=== PATIENT | male | born 1950 | race Caucasian/White ===

== ENCOUNTER 2019-11-02 07:53 | Inpatient (IN) | payer MEDICARE, OTHER ==
[2019-10-25 16:44] LABS: BASOPHILS # (AUTO) 0.1 X10'3 (0-0.2); BASOPHILS % (AUTO) 0.9 % (0-1); EOSINOPHILS # (AUTO) 0.2 X10'3 (0-0.9); EOSINOPHILS % (AUTO) 2.3 % (0-6); LYMPHOCYTES # (AUTO) 2.1 X10'3 (1.1-4.8); LYMPHOCYTES % (AUTO) 28.1 % (21-51); MEAN CORPUSCULAR HEMOGLOBIN 31.3 PG (27.0-31.0); MEAN CORPUSCULAR HGB CONC 33.7 g/dL (33.0-36.5); MEAN CORPUSCULAR VOLUME 92.7 FL (78-98); MEAN PLATELET VOLUME 8.9 FL (7.4-10.4); MONOCYTES # (AUTO) 0.7 X10'3 (0-0.9); MONOCYTES % (AUTO) 9.6 % (2-12); NEUTROPHILS # (AUTO) 4.5 X10'3 (1.8-7.7); NEUTROPHILS % (AUTO) 59.1 % (42-75); PRE OP HEMOGLOBIN 15.2 g/dL (14.0-17.9); PRE OP PLATELET COUNT 221 X10'3 (140-440); RED BLOOD COUNT 4.85 X10'6 (4.70-6.10); RED CELL DISTRIBUTION WIDTH 14.3 % (11.5-14.5)
[2019-10-25 17:03] LABS: ALBUMIN 3.9 G/DL (3.4-5.0); ALBUMIN/GLOBULIN RATIO 1.3 (1.1-1.5); ALKALINE PHOSPHATASE 89 IU/L (46-116); BLOOD UREA NITROGEN 28 MG/DL (7-18); BUN/CREATININE RATIO 23.9 (5.4-32.0); CALCIUM 9.3 MG/DL (8.5-10.1); CHLORIDE 108 MMOL/L (99-107); CREATININE 1.17 MG/DL (0.60-1.10); PRE OP ALT 31 U/L (30-65); PRE OP ANION GAP 10 (8-16); PRE OP AST 20 U/L (10-37); PRE OP BILIRUB, TOTAL 0.3 MG/DL (0.0-1.0); PRE OP GLUCOSE 103 MG/DL (70-104); PRE OP POTASSIUM 4.2 MMOL/L (3.4-5.1); PRE OP SODIUM 144 MMOL/L (135-145); TOTAL CARBON DIOXIDE 26.5 MMOL/L (24-32); TOTAL PROTEIN 6.8 G/DL (6.4-8.2); eGFR 62 ML/MIN
[2019-11-02] VITALS (17 sets, daily range): BP systolic 90–183; BP diastolic 48–92
[~2019-11-02] VITALS: Ht 170.2 cm; Wt 102.4 kg
[~2019-11-02 07:53] MED LIST: ACET-812 PO; ASPI-1265 PO; ATOR10TA70 PO; LEVO50TA8 PO; LISI10TA4 PO; MULT-933 PO; NAPR220C15 PO; NORMAL SALINE IV ONE; TRANEXAMIC ACID IV ONE; cefazolin/dext.iso 2gm/100ml 100 ML IV ONE; famotidine 20mg tablet PO ONE; ringers solution, lacted 1,000 ML IV SCH; vancomycin inj 1,500 MG in normal saline 300ml IV soln IV ONE
[2019-11-02] MEDS ORDERED: TRANEXAMIC ACID IV ONE (12:00)
[2019-11-02] MEDS ORDERED: NORMAL SALINE IV ONE (12:00)
[2019-11-02] MEDS ORDERED: tranexamic acid 1gm/0.7% sal. 100 ML IV ONE ×2 (12:10→18:45)
[2019-11-02] MEDS ORDERED: sevoflurane 250ml liquid IH ONE (12:23)
[2019-11-02] MEDS ORDERED: dexamethasone sod phosphate 10mg/ml inj ONE (12:23)
[2019-11-02] MEDS ORDERED: fentaNYL/PF 50MCG/1 ML 2ML syringe ONE (12:29)
[2019-11-02] MEDS ORDERED: midazolam 2 mg/2 ml injection ONE (12:30)
[2019-11-02] MEDS ORDERED: ROPIVAcaine 0.5% (5mg/ml) 30ml vial ONE ×2 (12:39→15:37)
[2019-11-02] MEDS ORDERED: ketorolac trometh. 30mg/ml inj. ONE (12:39)
[2019-11-02] MEDS ORDERED: magnesium hydroxide 30ml (MOM) UD suspension PO PRN (13:00)
[2019-11-02] MEDS ORDERED: oxyCODONE IR 5mg (immed. release) tablet PO PRN (13:00)
[2019-11-02] MEDS ORDERED: ondansetron/PF 4mg/2ml inj IV PRN ×2 (13:00→13:25)
[2019-11-02] MEDS ORDERED: bisacodyl 10mg suppository rectal RC PRN (13:00)
[2019-11-02] MEDS ORDERED: HYDROmorphone 1 mg/ml syringe IV PRN (13:00)
[2019-11-02] MEDS ORDERED: HYDROmorphone inj. 0.5 MG/0.5 ML DISP.SYRIN IV PRN (13:00)
[2019-11-02] MEDS ORDERED: diphenhydrAMINE 25mg capsule PO PRN ×2 (13:00)
[2019-11-02] MEDS ORDERED: ringers solution, lacted 1,000 ML IV SCH (13:24)
[2019-11-02] MEDS ORDERED: morphine 4 MG/ML inj SYRINge IV PRN ×2 (13:25)
[2019-11-02] MEDS ORDERED: ROPIVAcaine 0.2% (10 MG/5 ML) BOLUS INJECTION INTERSCALE PRN (13:25)
[2019-11-02] MEDS ORDERED: labetalol 20mg/4ml (5mg/ml) syringe IV PRN (13:25)
[2019-11-02] MEDS ORDERED: hydrALAZINE 20mg/ml inj. IV PRN (13:25)
[2019-11-02] MEDS ORDERED: fentaNYL/PF 50MCG/1 ML 2ML syringe IV PRN ×2 (13:25)
[2019-11-02] MEDS ORDERED: ROPIVAcaine 0.5% (5mg/ml) 30ml vial IJ ONE (14:00)
[2019-11-02 15:02] LABS: APPEARANCE,SYNOVIAL FLUID BLOODY; COLOR,SYNOVIAL FLUID RED; SYN RBC 42000 /CU MM (0); SYN WBC 17 /CU MM (0-200)
[2019-11-02] MEDS ORDERED: LIDOcaine 2% (20mg/ml) 5ml vial ONE (15:37)
[2019-11-02] MEDS ORDERED: ondansetron/PF 4mg/2ml inj ONE (15:37)
[2019-11-02] MEDS ORDERED: propofol inj 20 ML IV ONE (15:37)
--- NOTE | 2019-11-02 15:55 | NUR ---
Received from OR via BED , accompanied by Anesthesiologist DR STOLL and report given by Anesthesiolgist. PATIENT A&OX4, DENIES PAIN, V/S WNL, NEUROVASCULAR CHECKS INTACT, 20G PIV LUE , RIGHT SHOULDER DRESSING WRAP CDI WITH COLD POWDER PACK AND SLING, SCD ON. ON-Q TO BE STARTED WHEN IT IS DELIVERED
[2019-11-02] MEDS ORDERED: tranexamic acid inj. 1,000 MG in normal saline 100ml IV soln 100 ML IV ONE (16:00)
[2019-11-02] MEDS: ROPIVAcaine 0.2%/PF PUMP/bolus 550 ML INTERSCALE SCH ×2 (16:10→22:10)
--- NOTE | 2019-11-02 16:15 | NUR ---
Patient in room . I have received report from Hector in recovery and had the opportunity to ask questions and assume patient care.
--- NOTE | 2019-11-02 16:55 | NUR ---
PATIENT A&OX4, DENIES PAIN, V/S WNL, NEUROVASCULAR CHECKS INTACT, 20G PIV LUE , RIGHT SHOULDER DRESSING WRAP CDI WITH COLD POWDER PACK AND SLING, SCD ON. ON-Q STARTED AT 4ML/HR. PATIENT TAKEN TO 4006 WITH ALL BELONGINGS AND HOOKED UP TO MONITORS IN ROOM AND REPORT GIVEN TO RAW MILL OPERATOR WHO HAS TAKEN OVER PATIENT CARE.
--- NOTE | 2019-11-02 17:10 | NUR ---
Pt arrived on floor, tucked in, provided comfort measures, snacks
[2019-11-02] MEDS: ceFAZolin 1GM/D5W- ADD-VANTAGE 50 ML IV SCH (17:48)
--- NOTE | 2019-11-02 18:17 | NUR ---
Problems reprioritized. Patient report given, questions answered & plan of care reviewed with Miriam.
--- NOTE | 2019-11-02 18:30 | NUR ---
Patient in room [facility] 4006. I have received report from Iliana GARCÍA and had the opportunity to ask questions and assume patient care.
[2019-11-02] MEDS: potassium cl 20mEq in 1/2 NS 1,000 ML IV SCH ×2 (19:16→20:58)
[2019-11-02] MEDS ORDERED: vancomycin/NS 1 GM ADD-VANTAGE 250 ML IV SCH (20:00)
[2019-11-02] MEDS: naproxen sodium 220mg tablet PO SCH (20:00)
[2019-11-02] MEDS ORDERED: sennosides 8.6mg tablet PO SCH (21:00)
[2019-11-02] MEDS ORDERED: acetaminophen 325mg tablet PO SCH (21:00)
--- NOTE | 2019-11-02 22:11 | NUR ---
Pain of 7/10. Increased ON-Q pump to 6/hr
[2019-11-03] MEDS: ceFAZolin 1GM/D5W- ADD-VANTAGE 50 ML IV SCH (00:17)
[2019-11-03 02:00] VITALS: BP 94/53
[2019-11-03] MEDS: oxyCODONE IR 5mg (immed. release) tablet PO PRN ×2 (03:09→08:44)
[2019-11-03] MEDS: potassium cl 20mEq in 1/2 NS 1,000 ML IV SCH ×2 (04:58→12:58)
[2019-11-03 06:00] VITALS: BP 126/70
[2019-11-03 06:27] LABS: ANION GAP 10 (8-16); CHLORIDE 108 MMOL/L (99-107); POTASSIUM 4.2 MMOL/L (3.5-5.1); SODIUM 140 MMOL/L (135-145)
--- NOTE | 2019-11-03 06:41 | NUR ---
Problems reprioritized. Patient report given, questions answered & plan of care reviewed with Siri RN.
[2019-11-03 06:42] LABS: BASOPHILS # (AUTO) 0.1 X10'3 (0-0.2); BASOPHILS % (AUTO) 0.6 % (0-1); EOSINOPHILS # (AUTO) 0.1 X10'3 (0-0.9); EOSINOPHILS % (AUTO) 0.6 % (0-6); HEMATOCRIT 37.7 % (42.0-52.0); HEMOGLOBIN 12.7 g/dl (14.0-17.9); LYMPHOCYTES # (AUTO) 1.3 X10'3 (1.1-4.8); LYMPHOCYTES % (AUTO) 14.4 % (21-51); MEAN CORPUSCULAR HEMOGLOBIN 31.5 PG (27.0-31.0); MEAN CORPUSCULAR HGB CONC 33.8 g/dL (33.0-36.5); MEAN CORPUSCULAR VOLUME 93.2 FL (78-98); MEAN PLATELET VOLUME 9.4 FL (7.4-10.4); MONOCYTES # (AUTO) 1.2 X10'3 (0-0.9); MONOCYTES % (AUTO) 13.5 % (2-12); NEUTROPHILS # (AUTO) 6.2 X10'3 (1.8-7.7); NEUTROPHILS % (AUTO) 70.9 % (42-75); PLATELET COUNT 187 X10'3 (140-440); RED BLOOD COUNT 4.05 X10'6 (4.70-6.10); RED CELL DISTRIBUTION WIDTH 14.1 % (11.5-14.5); WHITE BLOOD COUNT 8.7 X10'3 (4.5-11.0)
--- NOTE | 2019-11-03 06:50 | NUR ---
Patient in room [facility]TH[facility] 4006. I have received report from RAQUEL Pineda and had the opportunity to ask questions and assume patient care.
[2019-11-03] MEDS ORDERED: levoTHYROXINE 25mcg tablet PO SCH (07:00)
[2019-11-03] MEDS: naproxen sodium 220mg tablet PO SCH (08:00)
[2019-11-03] MEDS ORDERED: lisinopril 10 MG tablet PO SCH (08:00)
[2019-11-03] MEDS ORDERED: multivitamins, therapeutics tablet PO SCH (08:00)
[2019-11-03] MEDS ORDERED: atorvastatin 10mg tablet PO SCH (08:00)
[2019-11-03] MEDS ORDERED: aspirin 81mg tab.chew PO SCH (08:00)
[2019-11-03] MEDS ORDERED: aspirin 325mg tablet PO SCH (08:30)
[2019-11-03 10:00] VITALS: BP 93/70
--- NOTE | 2019-11-03 13:35 | NUR ---
DC inst provided to pt. IV DC'd, tip intact. All belongings sent w/pt. Pt ambulated to front lobby.
== END 2019-11-03 13:35 | disposition home or self-care (01) | DRG 496 ==
LOC: PAS 07:53 → EDSTATUS 12:45 → ORTHO 4S 12:58 → PAS 17:10 → ORTHO 4S 17:10 → PAS 11-03 13:35 → ORTHO 4S 11-03 13:35
PROVIDERS: ADMIT Orthopaedic Surgery; ATTEND Orthopaedic Surgery
PROC: 0RHJ08Z Insertion of Spacer into Right Shoulder Joint, Open Approach (ICD-10-PCS; 2019-11-02)
PROC: 3E0T3BZ Introduction of Anesthetic Agent into Peripheral Nerves and Plexi, Percutaneous Approach (ICD-10-PCS; 2019-11-02)
PROC: 0RPJ0JZ Removal of Synthetic Substitute from Right Shoulder Joint, Open Approach (ICD-10-PCS; principal; 2019-11-02 12:23)
DX: T84.498A Other mechanical complication of other internal orthopedic devices, implants and grafts, initial encounter (principal); D62 Acute posthemorrhagic anemia; Z96.611 Presence of right artificial shoulder joint; M25.511 Pain in right shoulder; E03.9 Hypothyroidism, unspecified; E78.5 Hyperlipidemia, unspecified; E66.9 Obesity, unspecified; G89.29 Other chronic pain; I10 Essential (primary) hypertension; M65.811 Other synovitis and tenosynovitis, right shoulder; Y79.2 Prosthetic and other implants, materials and accessory orthopedic devices associated with adverse incidents; Y92.89 Other specified places as the place of occurrence of the external cause; Z88.5 Allergy status to narcotic agent; Z87.891 Personal history of nicotine dependence; Z68.35 Body mass index [BMI] 35.0-35.9, adult; Z79.899 Other long term (current) drug therapy; Z79.82 Long term (current) use of aspirin
CPT/HCPCS: 36415; 73020; 76000; 80051; 80053; 82948; 84443; 85025; 87070; 87075; 87081; 87176; 89051; A4565; A4618; A6455; A7000; C1713; C1776; G0378; J0690; J1100; J1170; J1885; J2001; J2250; J2405; J2704; J2795; J3010; J3370; J3480; J7120

== ENCOUNTER 2024-07-30 07:42 | Inpatient (IN) | payer MEDICARE, OTHER ==
[2024-07-24 10:04] LABS: BASOPHILS % (AUTO) 0.7 % (0-1); EOSINOPHILS # (AUTO) 0.1 X10'3 (0-0.9); EOSINOPHILS % (AUTO) 1.8 % (0-6); LYMPHOCYTES # (AUTO) 1.7 X10'3 (1.1-4.8); MEAN CORPUSCULAR HEMOGLOBIN 31.1 PG (27.0-31.0); MEAN CORPUSCULAR HGB CONC 32.4 g/dL (33.0-36.5); MEAN PLATELET VOLUME 8.8 FL (7.4-10.4); MONOCYTES # (AUTO) 0.6 X10'3 (0-0.9); MONOCYTES % (AUTO) 9.7 % (2-12); NEUTROPHILS % (AUTO) 61.8 % (42-75); PRE OP HEMOGLOBIN 14.6 g/dL (14.0-17.9); PRE OP PLATELET COUNT 212 X10'3 (140-440); PRE OP WHITE BLOOD COUNT 6.5 10'3 (4.8-10.8); RED BLOOD COUNT 4.69 X10'6 (4.70-6.10); RED CELL DISTRIBUTION WIDTH 14.7 % (11.5-14.5)
[2024-07-24 10:29] LABS: ALBUMIN 3.5 G/DL (3.4-5.0); ALBUMIN/GLOBULIN RATIO 1.1 (1.1-1.5); ALKALINE PHOSPHATASE 75 IU/L (46-116); BLOOD UREA NITROGEN 25 MG/DL (7-18); CALCIUM 9.4 MG/DL (8.5-10.1); CHLORIDE 105 MMOL/L (99-107); CREATININE 1.04 MG/DL (0.60-1.10); PRE OP ALT 30 U/L (30-65); PRE OP ANION GAP 7 (8-16); PRE OP AST 25 U/L (10-37); PRE OP BILIRUB, TOTAL 0.3 MG/DL (0.0-1.0); PRE OP GLUCOSE 93 MG/DL (70-104); PRE OP SODIUM 140 MMOL/L (135-145); THYROID STIMULATING HORMONE 1.88 ulU/ml (0.34-4.50); TOTAL CARBON DIOXIDE 28.5 MMOL/L (24-32); TOTAL PROTEIN 6.8 G/DL (6.4-8.2); eGFR 70 ML/MIN
[2024-07-24 10:35] LABS: PRE OP POTASSIUM 4.4 MMOL/L (3.4-5.1)
[~2024-07-30] VITALS: Ht 175.3 cm; Wt 96.9 kg
[2024-07-30] VITALS (23 sets, daily range): BP systolic 102–185; BP diastolic 62–100; PULSE 62–96; RESP 12–18; TEMP 97–97.6; O2SAT 92–99
[2024-07-30] MEDS: ceFAZolin 2gm in dextrose, iso 50 ML IV ONE (05:30)
[~2024-07-30 07:42] MED LIST changes: -ASPI-1265 PO; +IBUP-1985 PO; +LISI10TA27 PO; -LISI10TA4 PO; -NAPR220C15 PO; -NORMAL SALINE IV ONE; +OMEG-166 PO; -TRANEXAMIC ACID IV ONE; -cefazolin/dext.iso 2gm/100ml 100 ML IV ONE; -famotidine 20mg tablet PO ONE; -ringers solution, lacted 1,000 ML IV SCH; -vancomycin inj 1,500 MG in normal saline 300ml IV soln IV ONE
[2024-07-30] MEDS: famotidine 20mg tablet PO ONE (08:54)
[2024-07-30] MEDS: vancomycin 1,500 MG in NS 300ml IV soln IV ONE (08:55)
[2024-07-30] MEDS: ringers solution, lacted 1,000 ML IV SCH (08:55)
[2024-07-30] MEDS: tranexamic acid 650mg tablet PO ONE (08:55)
[2024-07-30] MEDS ORDERED: ROPIVAcaine 0.5% (5mg/ml) 30ml vial ONE ×2 (10:26→10:41)
[2024-07-30] MEDS ORDERED: dexamethasone sod phosphate 4mg/ml inj. ONE (10:41)
[2024-07-30] MEDS ORDERED: propofol inj 20 ML IV ONE (10:42)
[2024-07-30] MEDS ORDERED: LIDOcaine 2% (20mg/ml) 5ml vial ONE (10:42)
[2024-07-30] MEDS ORDERED: sevoflurane 250ml liquid IH ONE (11:32)
[2024-07-30] MEDS ORDERED: acetaminophen 1,000mg/100ml IV 100 ML IV ONE (12:14)
[2024-07-30] MEDS ORDERED: ePHEDrine 50MG/ML INJ. ONE (12:37)
[2024-07-30] MEDS ORDERED: morphine 2 MG/ML inj. syringe IV PRN (12:45)
[2024-07-30] MEDS ORDERED: hydrALAZINE 20mg/ml inj. IV PRN (12:45)
[2024-07-30] MEDS ORDERED: ringers solution, lacted 1,000 ML IV SCH (12:45)
[2024-07-30] MEDS ORDERED: ondansetron/PF 4mg/2ml inj IV PRN ×2 (12:45→14:50)
[2024-07-30] MEDS ORDERED: fentaNYL/PF 50MCG/1 ML 2ML syringe IV PRN ×2 (12:45)
[2024-07-30] MEDS ORDERED: morphine 4 MG/ML inj SYRINge IV PRN (12:45)
[2024-07-30] MEDS ORDERED: labetalol 20mg/4ml (5mg/ml) syringe IV PRN (12:45)
[2024-07-30] MEDS: ROPIVAcaine 0.5% (5mg/ml) 30ml vial IJ ONE (12:59)
[2024-07-30] MEDS ORDERED: ROPIVAcaine 0.2% (10 MG/5 ML) BOLUS INJECTION INTERSCALE PRN (13:00)
[2024-07-30] MEDS ORDERED: ondansetron/PF 4mg/2ml inj ONE (13:01)
[2024-07-30] MEDS ORDERED: meperidine/PF 50mg/ml syringe ONE ×2 (13:01→13:47)
[2024-07-30] MEDS ORDERED: ketorolac trometh 30MG/ML vial 30 MG/ML VIAL ONE (13:15)
[2024-07-30] MEDS ORDERED: diphenhydrAMINE 25mg capsule PO PRN ×2 (14:50)
[2024-07-30] MEDS ORDERED: oxyCODONE IR 5mg (immed. release) tablet PO PRN (14:50)
[2024-07-30] MEDS ORDERED: acetaminophen 325mg tablet PO PRN (14:50)
[2024-07-30] MEDS ORDERED: magnesium hydroxide 30ml (MOM) UD suspension PO PRN (14:50)
[2024-07-30] MEDS ORDERED: HYDROmorphone inj. 0.5 MG/0.5 ML DISP.SYRIN IV PRN (14:50)
[2024-07-30] MEDS ORDERED: ACETAMINOPHEN 500 MG PO PRN (14:50)
[2024-07-30] MEDS ORDERED: bisacodyl 10mg suppository rectal RC PRN (14:50)
[2024-07-30] MEDS: ROPIVAcaine 0.2%/PF PUMP/bolus 545 ML INTERSCALE SCH (14:57)
[2024-07-30] MEDS ORDERED: IBUPROFEN 600 MG PO SCH (16:00)
[2024-07-30] MEDS ORDERED: ceFAZolin/D5W- 1GM premix 50 ML IV SCH (16:00)
[2024-07-30] MEDS: HYDROmorphone 1 mg/ml syringe IV PRN (17:11)
[2024-07-30] MEDS: oxyCODONE IR 5mg (immed. release) tablet PO PRN (19:18)
[2024-07-30] MEDS: ceFAZolin/D5W- 1GM premix 50 ML IV SCH (19:18)
[2024-07-30] MEDS: sennosides 8.6mg tablet PO SCH (22:41)
[2024-07-30] MEDS: acetaminophen 325mg tablet PO SCH (22:41)
[2024-07-30] MEDS: VANCOMYCIN 1GM 200ML H20 (PEG) 200 ML IV SCH (22:41)
[2024-07-31 02:00] VITALS: BP 110/74; PULSE 66; RESP 16; TEMP 96.5; O2SAT 97
[2024-07-31 06:00] VITALS: BP 137/80; PULSE 67; RESP 16; TEMP 96.5; O2SAT 96
[2024-07-31] MEDS: potassium cl 20mEq in 1/2 NS 1,000 ML IV SCH (06:08)
[2024-07-31 06:23] LABS: BASOPHILS % (AUTO) 0.2 % (0-1); EOSINOPHILS % (AUTO) 0 % (0-6); HEMATOCRIT 36.6 % (42.0-52.0); HEMOGLOBIN 12.1 g/dl (14.0-17.9); LYMPHOCYTES # (AUTO) 1.1 X10'3 (1.1-4.8); LYMPHOCYTES % (AUTO) 9.9 % (21-51); MEAN CORPUSCULAR HEMOGLOBIN 31.5 PG (27.0-31.0); MEAN CORPUSCULAR HGB CONC 33.1 g/dL (33.0-36.5); MEAN CORPUSCULAR VOLUME 95.1 FL (78-98); MONOCYTES # (AUTO) 1.3 X10'3 (0-0.9); MONOCYTES % (AUTO) 11.9 % (2-12); NEUTROPHILS # (AUTO) 8.5 X10'3 (1.8-7.7); PLATELET COUNT 201 X10'3 (140-440); RED BLOOD COUNT 3.85 X10'6 (4.70-6.10); RED CELL DISTRIBUTION WIDTH 14.1 % (11.5-14.5); WHITE BLOOD COUNT 10.9 X10'3 (4.5-11.0)
[2024-07-31 06:45] LABS: ANION GAP 6 (8-16); CHLORIDE 104 MMOL/L (99-107); POTASSIUM 4.5 MMOL/L (3.5-5.1); SODIUM 136 MMOL/L (135-145)
[2024-07-31 08:00] VITALS: RESP 18
[2024-07-31] MEDS ORDERED: celeCOXIB 100mg capsule PO SCH ×2 (08:00→20:00)
[2024-07-31] MEDS: levoTHYROXINE 25mcg tablet PO SCH (08:46)
[2024-07-31] MEDS: OMEGA-3/DHA/EPA/FISH OIL 1 EACH CAPSULE.DR PO SCH (08:46)
[2024-07-31] MEDS: atorvastatin 10mg tablet PO SCH (08:46)
[2024-07-31] MEDS: multivitamins, therapeutics tablet PO SCH (08:46)
[2024-07-31] MEDS: lisinopril 10 MG tablet PO SCH (08:48)
[2024-07-31] MEDS: aspirin 325mg tablet PO SCH (08:49)
[2024-07-31 10:00] VITALS: BP 120/74; PULSE 82; RESP 20; TEMP 98; O2SAT 96
[2024-08-01] MEDS ORDERED: acetaminophen 325mg tablet PO PRN (13:15)
== END 2024-07-31 11:25 | disposition home health service (06) | DRG 483 ==
LOC: PAS IN 07:42 → ORTHO 4S 16:43
PROVIDERS: ADMIT Orthopaedic Surgery; ATTEND Orthopaedic Surgery
PROC: 0RRK00Z Replacement of Left Shoulder Joint with Reverse Ball and Socket Synthetic Substitute, Open Approach (ICD-10-PCS; 2024-07-30)
PROC: 3E0T3BZ Introduction of Anesthetic Agent into Peripheral Nerves and Plexi, Percutaneous Approach (ICD-10-PCS; 2024-07-30)
PROC: 3E0T33Z Introduction of Anti-inflammatory into Peripheral Nerves and Plexi, Percutaneous Approach (ICD-10-PCS; 2024-07-30)
PROC: 0RPK0JZ Removal of Synthetic Substitute from Left Shoulder Joint, Open Approach (ICD-10-PCS; principal; 2024-07-30 11:32)
DX: T84.098A Other mechanical complication of other internal joint prosthesis, initial encounter (principal); Y83.8 Other surgical procedures as the cause of abnormal reaction of the patient, or of later complication, without mention of misadventure at the time of the procedure; G89.29 Other chronic pain; Y92.89 Other specified places as the place of occurrence of the external cause
CPT/HCPCS: 36415; 80051; 80053; 82948; 84443; 85025; 87070; 87075; 87081; 93005; 97110; 97161; 97530; A4565; A4618; A7000; C1713; C1776; G0378; J0131; J0690; J1100; J1171; J1885; J2003; J2175; J2405; J2704; J2795; J3372; J3480; J3490; J7120